=== PATIENT | female | born 1975 ===

== ENCOUNTER 2022-12-18 10:03 | Outpatient (CLI) | payer OTHER ==
[~2022-12-18 10:03] MED LIST: GADOBUTROL 7.5 MMOL/7.5 ML VIAL ONE
[2022-12-18] MEDS ORDERED: GADOBUTROL 7.5 MMOL/7.5 ML VIAL IVP ONE (11:00)
--- NOTE | 2022-12-18 12:05 | MRI Report ---
PROCEDURE: BRAIN W/WO INDICATIONS: PARESTHESIA CONTRAST: GADAVIST 5.8 ML TECHNIQUE: Noncontrast axial T1 spin echo, axial T2 fast spin echo, sagittal and axial FLAIR, coronal T2 fast sp in echo, axial gradient echo, axial diffusion and ADC through the brain. After the administration of contrast, axial and coronal T1 spin echo with fat saturation through the brain. COMPARISON: None. FINDINGS: Image quality: Excellent. CSF spaces: Basal cisterns are patent. No extra-axial fluid collections. Ventricles are normal in size and shape. Brain: Multiple foci of abnormal T2-weighted hyperintensity can be seen in the periventricular and d eep white matter. No definite involvement of the corpus callosum can be seen. No definite brainstem l esions are seen. No significant lesions can be seen within the cerebellum. These lesions do not enhan ce. Certainly several of the larger lesions demonstrate low T1-weighted signal. No midline shift. No intracranial bleeds or masses. No abnormal intracranial enhancement. The brai nstem appears normal. Diffusion-weighted images demonstrate no acute ischemic insults. No chronic i schemic insults. Normal intravascular flow voids are present. Skull and face: Calvarial marrow is normal in signal. Orbits appear normal. Sinuses: Sinuses and mastoids appear clear. IMPRESSION: Numerous foci of nonenhancing T2-weighted hyperintensity can be seen within the white ma tter. Although nonspecific, concern is raised for multiple sclerosis in a female patient of this age. Differential diagnosis would also include premature chronic small vessel ischemic change, however. No findings of acute or subacute infarction are seen. No masses or abnormal enhancement can be seen. Reviewed by: Marek Roman MD on 12/18/2022 11:04 AM [facility] Approved by: Marek Roman MD on 12/18/2022 11:04 AM [facility] Station ID: [id number]
== END 2022-12-18 10:04 | disposition home or self-care (01) ==
LOC: DI 10:03
PROVIDERS: ATTEND Student in an Organized Health Care Education/Training Program
DX: R20.2 Paresthesia of skin (principal)
CPT/HCPCS: 70553; A9585

== ENCOUNTER 2023-11-26 09:02 | Outpatient (CLI) | payer OTHER ==
[~2023-11-26 09:02] MED LIST changes: -GADOBUTROL 7.5 MMOL/7.5 ML VIAL ONE; +GADOTERATE MEGLUMINE 2.5 MMOL/5 ML VIAL ONE; +GADOTERATE MEGLUMINE 5 MMOL/10 ML VIAL ONE
[2023-11-26] MEDS ORDERED: GADOTERATE MEGLUMINE 5 MMOL/10 ML VIAL IVP ONE (10:32)
--- NOTE | 2023-11-26 13:24 | MRI Report ---
PROCEDURE: Brain W/WO INDICATIONS: PARESTHESIA OF SKIN, WHITE MATTER CHANGES OF BRAIN CONTRAST: CLARISCAN 11.6 ML TECHNIQUE: Noncontrast axial T1 spin echo, axial T2 fast spin echo, sagittal and axial FLAIR, coronal T2 fast sp in echo, axial gradient echo, axial diffusion and ADC through the brain. After the administration of contrast, axial and coronal T1 spin echo with fat saturation through the brain. COMPARISON: 12/18/2022. Correlation is made with the accompanying cervical spine MRI. FINDINGS: Image quality: Motion artifact is noted. CSF spaces: Basal cisterns are patent. No extra-axial fluid collections. Ventricles are normal in size and shape. Brain: Multiple foci of T2-weighted hyperintensity can be seen within the white matter. These are pr imarily seen within the deep white matter, although there are lesions seen within the periventricular white matter as well as within the peripheral white matter. No definite brainstem involvement is see n. No definite cerebellar lesions are seen. These foci do not enhance. No midline shift. No intracranial bleeds or masses. No abnormal intracranial enhancement. The brai nstem appears normal. Diffusion-weighted images demonstrate no acute ischemic insults. No chronic i schemic insults. Normal intravascular flow voids are present. Skull and face: Calvarial marrow is normal in signal. Orbits appear normal. Sinuses: Sinuses and mastoids appear clear. IMPRESSION: Stable foci of nonenhancing T2-weighted hyperintensity can again be seen within the whit e matter. These foci are nonspecific, although concern is raised for multiple sclerosis. Reviewed by: Marek Roman MD on 11/26/2023 12:22 PM [facility] Approved by: Marek Roman MD on 11/26/2023 12:22 PM [facility] Station ID: [id number]
--- NOTE | 2023-11-26 18:38 | MRI Report ---
PROCEDURE: Cervical Spine W/WO INDICATIONS: PARESTHESIA OF SKIN, WHITE MATTER CHANGES OF BRAIN CONTRAST: CLARISCAN 11.6 ML TECHNIQUE: Noncontrast sagittal T1 spin echo and T2 fast spin echo, sagittal STIR, sagittal PD fast spin echo, f oraminal oblique sagittal T2 fast spin echo, axial gradient echo or T2 fast spin echo through the cer vical spine. After the administration of contrast, sagittal and axial T1 spin echo with fat saturati on through the cervical spine. COMPARISON: Correlation is made with the accompanying imaging. FINDINGS: Image quality: Excellent. Alignment and curvature: There is overall straightening of the normal cervical lordosis. Marrow: Marrow demonstrates normal overall signal. Spinal cord: Visualized spinal cord is normal in size, without white matter lesions. No suspicious intramedullary enhancement. No cerebellar tonsillar herniation. Paraspinous soft tissues: No paravertebral masses or suspicious enhancement. C2-C3: Normal in appearance. C3-C4: The disc height is well-preserved. There is loss of disc signal seen. Mild disc osteophyte complex is seen. There is mild right-sided and no left-sided neuroforaminal narrowing. No central can al narrowing is seen. C4-C5: The disc height is well-preserved. There is loss of disc signal seen. Mild disc osteophyte complex is seen. There is mild to moderate left-sided neuroforaminal narrowing. No right-sided neuro foraminal narrowing is seen. Mild central canal narrowing is seen. C5-C6: The disc height is well-preserved. There is loss of disc signal seen. Mild to moderate disc osteophyte complex is seen, with a central disc osteophyte protrusion. Mild facet hypertrophy is see n. There is moderate right-sided and mild left-sided neuroforaminal narrowing seen. Mild to moderat e central canal narrowing is seen, with a minimal degree of mass effect upon the ventral spinal cord. C6-C7: No significant abnormality is seen. C7-T1: Normal in appearance. IMPRESSION: No suspicious T2 hyperintense white matter lesions can be seen within the cervical spinal cord. No abnormal enhancement can be seen. Underlying cervical spine degenerative change can be seen, which is overall worst at the C5-C6 level. Reviewed by: Marek Roman MD on 11/26/2023 5:36 PM [facility] Approved by: Marek Roman MD on 11/26/2023 5:36 PM [facility] Station ID: [id number]
== END 2023-11-26 09:03 | disposition home or self-care (01) ==
LOC: DI 09:02
PROVIDERS: ATTEND Nurse Practitioner Family
DX: R20.2 Paresthesia of skin (principal); M47.812 Spondylosis without myelopathy or radiculopathy, cervical region; R90.89 Other abnormal findings on diagnostic imaging of central nervous system
CPT/HCPCS: 70553; 72156; A9575